=== PATIENT | female | born 1980 | race African-American/Black ===

== ENCOUNTER 2018-02-15 11:19 | Emergency (ER) | payer MEDICAID ==
[~2018-02-15] VITALS: Ht 165.1 cm; Wt 104.3 kg
[2018-02-15] MEDS ORDERED: ZOFRAN ODT8 MG ORAL (11:22)
[2018-02-15 11:28] VITALS: BP 113/88
[2018-02-15] MEDS ORDERED: Metoclopramide 10mg/2ml Inj IVP ONE (11:30)
[2018-02-15 11:59] LABS: BILIRUBIN, URINE 1+ (NEGATIVE); GLUCOSE, URINE (UA) NEGATIVE (NEGATIVE); KETONES,URINE 4+ (NEGATIVE); LEUKOCYTE ESTERASE ,URINE 1+ (NEGATIVE); NITRITE,URINE NEGATIVE (NEGATIVE); PH,URINE 5 (4.5-8.0); PROTEIN,URINE 3+ (NEGATIVE); UROBILINOGEN,URINE 4 MG/DL (0.0-1.0)
[2018-02-15 12:05] LABS: BASOPHILS % (AUTO) 1.2 % (0.0-2.0); EOSINOPHILS % (AUTO) 0.2 % (0.0-3.0); HEMATOCRIT 46.7 % (37.0-47.0); HEMOGLOBIN 15.7 G/DL (12.0-16.0); LYMPHOCYTES % (AUTO) 26.9 % (20.0-45.0); MEAN CORPUSCULAR VOLUME 78 FL (80-99); MONOCYTES % (AUTO) 10.6 % (1.0-10.0); PLATELET COUNT 269 K/UL (150-450); RED BLOOD COUNT 5.99 M/UL (4.20-5.40); RED CELL DISTRIBUTION WIDTH 11.6 % (11.6-14.8)
[2018-02-15 12:08] LABS: APPEARANCE,URINE SLIGHTLY CLOUDY; COLOR,URINE YELLOW
[2018-02-15 12:27] LABS: ALANINE AMINOTRANSFERASE 60 U/L (12-78); ALBUMIN 3.6 G/DL (3.4-5.0); ALBUMIN/GLOBULIN RATIO 0.6 (1.0-2.7); ALKALINE PHOSPHATASE 58 U/L (46-116); ANION GAP 14 mmol/L (5-15); ASPARTATE AMINO TRANSFERASE 30 U/L (15-37); BILIRUBIN,TOTAL 0.4 MG/DL (0.2-1.0); BLOOD UREA NITROGEN 16 mg/dL (7-18); CALCIUM 10.1 MG/DL (8.5-10.1); CARBON DIOXIDE 28 MMOL/L (21-32); CHLORIDE 90 MMOL/L (98-107); CREATININE 0.9 MG/DL (0.55-1.30); SODIUM 131 MMOL/L (136-145)
[2018-02-15 12:28] LABS: POTASSIUM 2.7 MMOL/L (3.5-5.1)
[2018-02-15] MEDS ORDERED: cefTRIAXone 1 GM in NS 55 ML IVPB ONE (13:15)
[2018-02-15] MEDS ORDERED: NITROFURANTOIN100 M2 ORAL (13:46)
[2018-02-15] MEDS ORDERED: REGLAN10 MG ORAL (13:46)
--- NOTE | 2018-02-15 14:00 | Diagnostic Imaging Report ---
Indication: Pelvic pain, nausea, patient Technique: Transabdominal and transvaginal images Comparison: none Findings: Uterus measures 9.2 cm in length by 9.4 cm AP. Within the endometrium, there is a gestational sac. This contains a pole. This demonstrates positive heart activity, heart rate 171 bpm measurements as follows: [place]-rump length 4.2 cm, 11 weeks zero days; biparietal diameter 1.5 cm, 12 weeks one day; head circumference 6.1 cm, 12 weeks 2 days. Estimated gestational age by average ultrasound measurements is 11 weeks 3 days. Estimated date of delivery is 09/03/2018. Estimated gestational age by dates is not available. Limited assessment of the anatomy, due to early stage of , emergent nature of the exam. Three-vessel cord is noted. Normal cord insertion. Normal spine. Unusual multiple hypoechoic hypervascular masses are seen within the myometrium, probably representing fibroids. Right ovary measures 3.3 cm in length. Left ovary measures 2.4 cm in length. No adnexal mass demonstrated. Both ovaries demonstrate normal blood flow on Doppler imaging no free cul-de-sac fluid Impression: 11 week 3 day, by average ultrasound measurements, single live intrauterine . Multiple myometrial hypoechoic hypervascular masses, presumably fibroids
[2018-02-15 14:12] VITALS: BP 124/76
--- NOTE | 2018-02-17 08:59 | Emergency Room Report ---
History of Present Illness General Chief Complaint: Nausea Source: Patient Present Illness HPI Patient presents with complains of increased nausea vomiting Approximately 11 weeks Patient reports being had a miscarriage recently Denies any chest pain or shortness of breath denies any abdominal pain Denies any dysuria denies any flank pain Denies any neck pain or photophobia Patient had recent evaluation by her OB physician several days ago Allergies: Coded Allergies: No Known Allergies (Unverified , 02/15/18) Patient History Past Medical History: see triage record Pertinent Family History: none Now: Yes : 3 Para: 1 Reviewed Nursing Documentation: PMH: Agreed; PSxH: Agreed Nursing Documentation-PMH Past Medical History: No History, Except For Hx Hypertension: Yes Review of Systems All Other Systems: negative except mentioned in HPI Physical Exam Vital Signs Date Time Temp Pulse Resp B/P (MAP) Pulse Ox O2 Delivery O2 Flow Rate FiO2 02/15/18 11:11 98.2 100 18 113/88 98 Room Air Sp02 EP Interpretation: reviewed, normal General Appearance: well appearing, no apparent distress Head: normocephalic, atraumatic Eyes: bilateral eye PERRL, bilateral eye EOMI ENT: hearing grossly normal, normal pharynx, TMs + canals normal, uvula midline Neck: full range of motion, supple, no meningismus, no bony tend Respiratory: lungs clear, normal breath sounds, no rhonchi, no respiratory distress, no retraction, no accessory muscle use Cardiovascular #1: normal peripheral pulses, regular rate, rhythm, no edema, no gallop, no JVD, no murmur Gastrointestinal: normal bowel sounds, non tender, soft - Early gravid abdomen cannot be palpated, no mass, no organomegaly, non-distended, no guarding, no hernia, no pulsatile mass, no rebound Genitourinary: no CVA tenderness Musculoskeletal: normal inspection Neurologic: oriented x3, responsive, official court interpreter III-XII nml as tested, motor strength/ tone normal, sensory intact Psychiatric: mood/affect normal Skin: normal color, no rash, warm/dry, palpation normal Lymphatic: normal inspection, no adenopathy Medical Decision Making Diagnostic Impression: Primary Impression: Nausea and vomiting in adult patient Additional Impressions: Nausea and vomiting in uti Hypokalemia ER Course With the patient's history and examination, multiple differentials considered, including but not limited to , ectopic , ovarian torsion, gastritis, cholecystitis, pancreatitis, appendicitis Pelvic ultrasound reveals intrauterine Urine sample however does show elevated bacteria patient also appears dehydrated Potassium level was also significantly low and replaced orally Further hydration is made antibiotics initiated Patient has significantly improved Consideration for pyelonephritis, hyperemesis gravidarum is made Given the patient's improvement she will have initial conservative outpatient trial and return with any changes, Labs Test 02/15/18 11:30 02/15/18 11:33 Urine Color Yellow Urine Appearance Slightly cloudy Urine pH 5 (4.5-8.0) Urine Specific [place] 1.025 (1.005-1.035) Urine Protein 3+ (NEGATIVE) Urine Glucose (UA) Negative (NEGATIVE) Urine Ketones 4+ (NEGATIVE) Urine Blood 5+ (NEGATIVE) Urine Nitrite Negative (NEGATIVE) Urine Bilirubin 1+ (NEGATIVE) Urine Ictotest Positive (NEGATIVE) Urine Urobilinogen 4 MG/DL (0.0-1.0) Urine Leukocyte Esterase 1+ (NEGATIVE) Urine RBC 5-10 /HPF (0 - 2) Urine WBC 10-15 /HPF (0 - 2) Urine Squamous Epithelial Cells Moderate /LPF (NONE/OCC) Urine Bacteria Many /HPF (NONE) Urine Yeast Moderate /HPF (NONE) White Blood Count 6.0 K/UL (4.8-10.8) Red Blood Count 5.99 M/UL (4.20-5.40) Hemoglobin 15.7 G/DL (12.0-16.0) Hematocrit 46.7 % (37.0-47.0) Mean Corpuscular Volume 78 FL (80-99) Mean Corpuscular Hemoglobin 26.2 PG (27.0-31.0) Mean Corpuscular Hemoglobin Concent 33.7 G/DL (32.0-36.0) Red Cell Distribution Width 11.6 % (11.6-14.8) Platelet Count 269 K/UL (150-450) Mean Platelet Volume 9.9 FL (6.5-10.1) Neutrophils (%) (Auto) 61.0 % (45.0-75.0) Lymphocytes (%) (Auto) 26.9 % (20.0-45.0) Monocytes (%) (Auto) 10.6 % (1.0-10.0) Eosinophils (%) (Auto) 0.2 % (0.0-3.0) Basophils (%) (Auto) 1.2 % (0.0-2.0) Sodium Level 131 MMOL/L (136-145) Potassium Level 2.7 MMOL/L (3.5-5.1) Chloride Level 90 MMOL/L (98-107) Carbon Dioxide Level 28 MMOL/L (21-32) Anion Gap 14 mmol/L (5-15) Blood Urea Nitrogen 16 mg/dL (7-18) Creatinine 0.9 MG/DL (0.55-1.30) Estimat Glomerular Filtration Rate > 60 mL/min (>60) Glucose Level 126 MG/DL (74-106) Calcium Level 10.1 MG/DL (8.5-10.1) Total Bilirubin 0.4 MG/DL (0.2-1.0) Aspartate Amino Transf (AST/SGOT) 30 U/L (15-37) Alanine Aminotransferase (ALT/SGPT) 60 U/L (12-78) Alkaline Phosphatase 58 U/L (46-116) Total Protein 10.0 G/DL (6.4-8.2) Albumin 3.6 G/DL (3.4-5.0) Globulin 6.4 g/dL Albumin/Globulin Ratio 0.6 (1.0-2.7) Lipase 189 U/L (73-393) CT/MRI/US Diagnostic Results CT/MRI/US Diagnostic Results : Impression pelvic ultrasound:Impression: 11 week 3 day, by average ultrasound measurements , single live intrauterine . Multiple myometrial hypoechoic hypervascular masses, presumably fibroids Last Vital Signs Date Time Temp Pulse Resp B/P (MAP) Pulse Ox O2 Delivery O2 Flow Rate FiO2 02/15/18 14:12 98.2 77 18 124/76 100 Room Air Status: improved Disposition: HOME, SELF-CARE Condition: Improved Scripts Nitrofurantoin Monohyd/M-Cryst* (MACROBID 100 MG*) 100 Mg Capsule 100 MG ORAL EVERY 12 HOURS for 7 Days, CAP Prov: Elias Graff DO 02/15/18 Metoclopramide Hcl* (REGLAN*) 10 Mg Tablet 10 MG ORAL THREE TIMES A DAY, #12 TAB Prov: Elias Graff DO 02/15/18 Referrals: NOT CHOSEN IPA/MD,REFERRING (PCP) Patient Instructions: Nausea and Vomiting, Adult, Hyperemesis Gravidarum, Urinary Tract Infection, [id number] Additional Instructions: Patient is provided with the discharge instructions notified to follow up with primary doctor in the next 2-3 days otherwise return to the er with any worsening symptoms. Please note that this report is being documented using DRAGON technology. This can lead to erroneous entry secondary to incorrect interpretation by the dictating instrument. Elias Graff DO Feb 17, 2018 08:59
== END 2018-02-15 14:23 | disposition home or self-care (01) ==
LOC: EDBD 11:19 → EMR 12:53
DX: O21.9 Vomiting of pregnancy, unspecified (principal); Z3A.11 11 weeks gestation of pregnancy; O16.1 Unspecified maternal hypertension, first trimester; O23.41 Unspecified infection of urinary tract in pregnancy, first trimester; E87.6 Hypokalemia
CPT/HCPCS: 36415; 76801; 80053; 81003; 83690; 85025; 87086; 96361; 96365; 96375; 99284; J0696; J2765; J8499